=== PATIENT | male | born 1995 | race Caucasian/White ===

== ENCOUNTER 2023-12-04 19:32 | Emergency (ER) | payer SELFPAY ==
[~2023-12-04] VITALS: Ht 188 cm; Wt 94.1 kg
[~2023-12-04 19:32] MED LIST: [UNRECOGNIZED DRUG - OTHER] PO
[2023-12-04 19:55] VITALS: TEMP 98
[2023-12-04] MEDS ORDERED: Home HYDROcodone/Acetaminophen 5/325 MG #4 TABS/PACK PO ONE (20:15)
[2023-12-04] MEDS ORDERED: Clindamycin 150 MG CAP PO ONE (20:15)
[2023-12-04] MEDS ORDERED: CLEOCIN HCL300 MG PO (20:17)
[2023-12-04] MEDS ORDERED: NORCO 325 MG-51 TAB PO (20:17)
[2023-12-04 20:55] VITALS: BP 128/82; PULSE 85
== END 2023-12-04 20:55 | disposition home or self-care (01) ==
LOC: COL.ER 19:32
DX: K02.9 Dental caries, unspecified (principal); K03.81 Cracked tooth; F17.210 Nicotine dependence, cigarettes, uncomplicated; F17.290 Nicotine dependence, other tobacco product, uncomplicated; Z88.0 Allergy status to penicillin